=== PATIENT | male | born 1980 ===

== ENCOUNTER 2018-01-21 14:47 | Emergency (ER) | payer SELFPAY ==
[2018-01-21] MEDS ORDERED: TYLENOL ONE (18:28)
[2018-01-21] MEDS ORDERED: TYLENOL PO ONE (18:30)
--- NOTE | 2018-01-21 21:00 | XRay Report ---
FINAL REPORT EXAM: XR SPINE CERVICAL 2-3V HISTORY: neck pain r/t injury TECHNIQUE: AP, lateral, and odontoid views of the cervical spine PRIORS: None. FINDINGS: The vertebral body heights and disc spaces are well maintained. The alignment is normal. No prevertebral soft tissue swelling is seen. The odontoid is intact. Mild degenerative disc space narrowing is noted at C5-C6. IMPRESSION: No acute abnormality in the cervical spine. Mild degenerative disc changes at C5-C6.
[2018-01-21 22:00] VITALS: BP 107/60
[2018-01-21] MEDS ORDERED: MOTRIN PO ONE (22:10)
[2018-01-21] MEDS ORDERED: ROXICODONE PO ONE (22:10)
[2018-01-21] MEDS ORDERED: FLEXERIL PO ONE (22:10)
--- NOTE | 2018-01-21 22:14 | Emergency Department Report ---
ED General Adult HPI - General Chief complaint: Extremity Injury, Upper Stated complaint: RIGHT SIDE NECK/SHOULDER PAIN Time Seen by Provider: 01/21/18 22:09 Source: patient Mode of arrival: Ambulatory Limitations: No Limitations - History of Present Illness Initial comments: 37-year-old -[place] male comes in complaining of right neck/shoulder pain. Patient not sure what has happened. He just reports he woke up in pain. He denies any heavy lifting and no trauma no sick contact not traveled outside the country. He denies any nausea no vomiting no fever no chills. He reports that the pain is worse when he turns his head to the left. Pain is with cough on the right side of his neck and shoulder. Patient said the pain is worse with laying down flat but sitting at a angle to his right helps. He reports the pain is sharp constant a 12 out of 10. He denies any past medical history, currently takes no medications and has no known drug allergies. -: days(s), This morning Location: neck Severity scale (0 -10): 10 Quality: aching, sharp Consistency: constant Improves with: other Worsens with: other (sitting with his head at an angle towards the right lying flat, turning his head to the left, leaning his head back) Associated Symptoms: denies: cough, fever/chills, nausea/vomiting Treatments Prior to Arrival: none - Related Data Previous Rx's Medication Instructions Recorded Last Taken Type Cyclobenzaprine [Flexeril] 10 mg PO TID PRN #15 tablet 01/21/18 Unknown Rx Ibuprofen [Motrin 800 MG tab] 800 mg PO Q8HR PRN #30 tablet 01/21/18 Unknown Rx Allergies Allergy/AdvReac Type Severity Reaction Status Date / Time No Known Allergies Allergy Unverified 01/21/18 18:29 ED Review of Systems ROS: Stated complaint: RIGHT SIDE NECK/SHOULDER PAIN Other details as noted in HPI Comment: All other systems reviewed and negative Musculoskeletal: arthralgia (neck pain) ED Past Medical Hx - Past Medical History Previous Medical History?: No - Surgical History Past Surgical History?: No - Social History Smoking Status: Current Every Day Smoker Substance Use Type: Alcohol - Medications Home Medications: Home Medications Medication Instructions Recorded Confirmed Last Taken Type Cyclobenzaprine [Flexeril] 10 mg PO TID PRN #15 tablet 01/21/18 Unknown Rx Ibuprofen [Motrin 800 MG tab] 800 mg PO Q8HR PRN #30 tablet 01/21/18 Unknown Rx ED Physical Exam - General Limitations: No Limitations General appearance: alert, in no apparent distress - Head Head exam: Present: atraumatic, normocephalic - Eye Eye exam: Present: normal appearance, PERRL, EOMI - ENT ENT exam: Present: mucous membranes moist - Neck Neck exam: Absent: full ROM, lymphadenopathy - Respiratory Respiratory exam: Present: normal lung sounds bilaterally. Absent: respiratory distress - Cardiovascular Cardiovascular Exam: Present: regular rate, normal rhythm. Absent: systolic murmur, diastolic murmur, rubs, gallop - Back Exam Back exam: Present: muscle spasm (neck), paraspinal tenderness (upper right back ). Absent: CVA tenderness (R), CVA tenderness (L) - Neurological Exam Neurological exam: Present: alert, oriented X3, normal gait - Psychiatric Psychiatric exam: Present: normal affect, normal mood - Skin Skin exam: Present: warm, dry, intact, normal color. Absent: rash ED Course Vital Signs 01/21/18 01/21/18 14:55 21:58 Temperature 98.4 F 98.4 F Pulse Rate 71 73 Respiratory 18 16 Rate Blood Pressure 118/67 Blood Pressure 107/60 [Left] O2 Sat by Pulse 100 98 Oximetry ED Medical Decision Making - Radiology Data Radiology results: report reviewed, image reviewed FINAL REPORT EXAM: XR SPINE CERVICAL 2-3V HISTORY: neck pain r/t injury TECHNIQUE: AP, lateral, and odontoid views of the cervical spine PRIORS: None. FINDINGS: The vertebral body heights and disc spaces are well maintained. The alignment is normal. No prevertebral soft tissue swelling is seen. The odontoid is intact. Mild degenerative disc space narrowing is noted at C5-C6. IMPRESSION: No acute abnormality in the cervical spine. Mild degenerative disc changes at C5-C6. Transcribed By: [facility] Dictated By: VAMSI SIMON MD Electronically Authenticated By: VAMSI SIMON MD Signed Date/Time: 01/21/182054 DD/ 54 TD/TT: 01/21/182054 - Medical Decision Making Patient has been evaluated by this provider fast track. X-ray of the cervical spine just shows some mild degenerative changes of C5-C6 and no fractures. Patient was given Tylenol 650 mg in triage. Provider ordered Flexeril 10 mg and oxycodone 5. We'll recommend warm compresses to his neck and upper back. Discharge patient on Flexeril and ibuprofen. Patient is to follow-up with his primary care provider or orthopedics. Critical care attestation.: If time is entered above; I have spent that time in minutes in the direct care of this critically ill patient, excluding procedure time. ED Disposition Clinical Impression: Degenerative disc disease, cervical Cervical myofascial strain Qualifiers: Encounter type: initial encounter Qualified Code(s): S16.1XXA - Strain of muscle, fascia and tendon at neck level, initial encounter Disposition: TO HOME OR SELFCARE Is pt being admited?: No Does the pt Need Aspirin: No Condition: Stable Instructions: Degenerative Disc Disease (ED) Additional Instructions: Please take pain medication as prescribed and muscle relaxant as prescribed. If symptoms persist or gets worse please follow up with her primary care provider or orthopedist. Prescriptions: Cyclobenzaprine [Flexeril] 10 mg PO TID PRN #15 tablet PRN Reason: Muscle Spasm Ibuprofen [Motrin 800 MG tab] 800 mg PO Q8HR PRN #30 tablet PRN Reason: Pain , Severe (7-10) Referrals: PRIMARY CAREMD [Primary Care Provider] - 3-5 Days CELIA HA MD [Staff Physician] - 3-5 Days [facility] [Provider Group] - 3-5 Days Forms: Work/School Release Form(ED)
== END 2018-01-21 22:35 | disposition home or self-care (01) ==
LOC: ED 14:47
DX: S16.1XXA Strain of muscle, fascia and tendon at neck level, initial encounter (principal); M50.322 Other cervical disc degeneration at C5-C6 level; F17.200 Nicotine dependence, unspecified, uncomplicated; X58.XXXA Exposure to other specified factors, initial encounter; Y93.89 Activity, other specified; Y92.89 Other specified places as the place of occurrence of the external cause; Y99.8 Other external cause status
CPT/HCPCS: 72040